=== PATIENT | male | born 1960 | race African-American/Black ===

== ENCOUNTER 2016-02-13 11:09 | Inpatient (IN) | payer OTHER ==
[2016-02-13 11:26] VITALS: BMI 25.0
--- NOTE | 2016-02-13 12:24 | HP ---
COWS - Scale Resting Pulse: 0= [place] 80 or Below Sweatin=Flushed/Facial Moisture Restless Observation: 1= Difficult to Sit Still Pupil Size: 2= Moderately Dilated Bone or Joint Aches: 2= Severe Diffuse Aches Runny Nose/ Eye Tearin= Runny Nose/Eyes GI Upset > 30mins: 2= Nausea/Diarrhea Tremor Observation: 2= Slight Tremor Visible Yawning Observation: 1= 1-2x During Session Anxiety or Irritability: 2=Irritable/Anxious Goose Flesh Skin: 0=Smooth Skin COWS Score: 16 CIWA Score - CIWA Score Nausea/Vomitin (AND DIARRHEA) Muscle Tremors: 4-Moderate,w/Arms Extend Anxiety: 4-Mod. Anxious/Guarded Agitation: 4-Moderately Restless Paroxysmal Sweats: 3 Orientation: 0-Oriented Tacttile Disturbances: 0-None Auditory Disturbances: 0-None Visual Disturbances: 0-None Headache: 0-None Present CIWA-Ar Total Score: 18 Admission ROS BHS - HPI Chief Complaint: WITHDRAWAL SX. Allergies/Adverse Reactions: Allergies Allergy/AdvReac Type Severity Reaction Status Date / Time No Known Allergies Allergy Verified 02/13/16 11:30 History of Present Illness: 55 Y/O MAN WITH A LONG HX. OF HEROIN & ALCOHOL DEPENDENCE IS ADMITTED FOR DETOX. PT. HAS BEEN IN PREVIOUS DETOX, REPORTS ALMOST 2 YRS DRUG FREE & SOBER. Exam Limitations: No Limitations - Ebola screening Have you traveled outside of the country in the last 21 days: No Have you had contact with anyone from an Ebola affected area: No Have you been sick,other than usual withdrawal symptoms: No Do you have a fever: No - Review of Systems Constitutional: Diaphoresis EENT: reports: Nose Congestion Respiratory: reports: No Symptoms reported Cardiac: reports: No Symptoms Reported GI: reports: Diarrhea, Nausea, Abdominal cramping : reports: No Symptoms Reported Musculoskeletal: reports: No Symptoms Reported Integumentary: reports: Sweating Neuro: reports: Tremors Endocrine: reports: No Symptoms Reported Hematology: reports: No Symptoms Reported Psychiatric: reports: No Sypmtoms Reported Other Systems: Reviewed and Negative Patient History - Patient Medical History Hx Anemia: No Hx Asthma: No Hx Chronic Obstructive Pulmonary Disease (COPD): No Hx Cancer: No Hx Cardiac Disorders: No Hx Congestive Heart Failure: No Hx Hypertension: No Hx Hypercholesterolemia: No Hx Pacemaker: No HX Cerebrovascular Accident: No Hx Seizures: No Hx Dementia: No Hx Diabetes: No Hx Gastrointestinal Disorders: No Hx Liver Disease: Yes Hx Genitourinary Disorders: No Hx Sexually Transmitted Disorders: No Hx Renal Disease (ESRD): No Hx Thyroid Disease: No Hx Human Immunodeficiency Virus (HIV): No Hx Hepatitis C: Yes (NEEDS TREATMENT ) Hx Depression: No Hx Suicide Attempt: No Hx Bipolar Disorder: No Hx Schizophrenia: No - Patient Surgical History Past Surgical History: Yes Hx Neurologic Surgery: No Hx Cataract Extraction: No Hx Cardiac Surgery: No Hx Lung Surgery: No Hx Breast Surgery: No Hx Breast Biopsy: No Hx Abdominal Surgery: No Hx Appendectomy: No Hx Cholecystectomy: No Hx Genitourinary Surgery: Yes (s/p cystoscopy and placement of stents for kidney stones ) Hx Section: No Hx Orthopedic Surgery: No Anesthesia Reaction: No - PPD History Previous Implant?: Yes Documented Results: Negative w/proof Implanted On Prior [facility] Admission?: Yes Date: 02/12/15 Results: 0 MM PPD to be Administered?: Yes - Smoking Cessation Smoking history: Current every day smoker Have you smoked in the past 12 months: Yes Aproximately how many cigarettes per day: 10 Cigars Per Day: 0 Hx Chewing Tobacco Use: No Initiated information on smoking cessation: Yes 'Breaking Loose' booklet given: 02/13/16 - Substance & Tx. History Hx Alcohol Use: Yes Hx Substance Use: Yes Substance Use Type: Alcohol, Heroin Hx Substance Use Treatment: Yes (DETOX) - Substances Abused Heroin Route: Injection Frequency: Daily Amount used: 10 bags Age of first use: 21 Date of Last Use: 02/13/16 Alcohol Route: Oral Frequency: Daily Amount used: beer(40 oz -4-5 bottles)/vodka 1 LITER Age of first use: 20 Date of Last Use: 02/12/16 Family Disease History - Family Disease History Family Disease History: Diabetes: Mother, Heart Disease: Father (alcoholic, [place]), [place]: Father, Other: Father Admission Physical Exam BHS - Vital Signs Vital Signs: Vital Signs - 24 hr 02/13/16 11:23 Temperature 97.9 F Pulse Rate 66 Respiratory 20 Rate Blood Pressure 133/94 - Physical General Appearance: Yes: Tremorous, Sweating, Anxious HEENTM: Yes: Nasal Congestion, Rhinorrhea Respiratory: Yes: Chest Non-Tender, Lungs Clear, Normal Breath Sounds Neck: Yes: Supple Breast: Yes: Breast Exam Deferred Cardiology: Yes: Regular Rhythm, Regular Rate, S1, S2 Abdominal: Yes: Normal Bowel Sounds, Non Tender, Flat, Soft Genitourinary: Yes: Within Normal Limits Back: Yes: Within Normal Limits Musculoskeletal: Yes: Within Normal Limits Extremities: Yes: Tremors Neurological: Yes: Fully Oriented, Alert Integumentary: Yes: Diaphoresis Lymphatic: Yes: Within Normal Limits - Diagnostic (1) Alcohol dependence with uncomplicated withdrawal Current Visit: Yes Status: Acute (2) Opioid dependence with withdrawal Current Visit: Yes Status: Acute (3) Hepatitis C Current Visit: Yes Status: Chronic Qualifiers: Viral hepatitis chronicity: chronic Hepatic coma status: without hepatic coma Qualified Code(s): B18.2 - Chronic viral hepatitis C (4) Nicotine dependence Current Visit: Yes Status: Chronic Qualifiers: Nicotine product type: cigarettes Substance use status: uncomplicated Qualified Code(s): F17.210 - Nicotine dependence, cigarettes, uncomplicated Cleared for Admission S - Detox or Rehab [facility] Level of Care: Medically Managed Detox Regimen/Protocol: Methadone/Librium [facility] Breath Alcohol Content Breath Alcohol Content: 0 Urine Drug Screen - Results Drug Screen Negative: No Urine Drug Screen Results: OPI-Opiates, MTD-Methadone
[2016-02-13] MEDS ORDERED: LOPERAMIDE HCL 2 MG CAPSULE PO PRN (12:32)
[2016-02-13] MEDS ORDERED: MENTHOL/PHENOL 1 EACH UD MM PRN (12:32)
[2016-02-13] MEDS ORDERED: MAGNESIUM HYDROX 2400MG/30ML ORAL SUSPENSION 30 ML CUP PO PRN (12:32)
[2016-02-13] MEDS ORDERED: chlordiazePOXIDE HCL 25 MG CAPSULE PO PRN (12:32)
[2016-02-13] MEDS ORDERED: MAGNESIUM CITRATE 300 ML BOTTLE PO PRN (12:32)
[2016-02-13] MEDS ORDERED: P-EPHED 60MG/TRIPROLIDI 2.5MG TABLET PO PRN (12:32)
[2016-02-13] MEDS ORDERED: NICOTINE POLACRILEX 2 MG GUM BC PRN (12:32)
[2016-02-13] MEDS ORDERED: guaiFENesin/D-METHORPHAN HB 10 ML UNIT-DOSE CUPS PO PRN (12:32)
[2016-02-13] MEDS ORDERED: IBUPROFEN 400 MG TABLET (FP) PO PRN (12:32)
[2016-02-13] MEDS ORDERED: MAG HYDROX/AL HYDROX/SIMETH 30 ML UNIT-DOSE CUP PO PRN (12:32)
[2016-02-13] MEDS ORDERED: ACETAMINOPHEN 325 MG TABLET (FP) PO PRN (12:32)
[2016-02-13] MEDS ORDERED: diphenhydrAMINE HCL 50 MG CAPSULE PO PRN (12:32)
[2016-02-13] MEDS ORDERED: chlordiazePOXIDE HCL 25 MG CAPSULE PO ONE (12:32)
[2016-02-13] MEDS ORDERED: METHADONE HCL 10 MG TABLET (FOR DETOX USE ONLY) PO ONE ×2 (12:32→23:00)
[2016-02-13] MEDS ORDERED: diphenhydrAMINE HCL 25 MG CAPSULE (FP) PO PRN (13:34)
[2016-02-13] MEDS: NICOTINE 21 MG/24 HOURS TOPICAL PATCH TD SCH (14:29)
[2016-02-13] MEDS: chlordiazePOXIDE HCL 25 MG CAPSULE PO SCH ×2 (17:30→22:11)
[2016-02-13] MEDS: THIAMINE HCL 100 MG TABLET (FP) PO SCH (22:11)
[2016-02-13 23:01] LABS: URINE APPEARANCE SLCLOUDY; URINE BILIRUBIN NEGATIVE (NEGATIVE); URINE BLOOD NEGATIVE (NEGATIVE); URINE COLOR YELLOW; URINE GLUCOSE (UA) NEGATIVE (NEGATIVE); URINE KETONE NEGATIVE (NEGATIVE); URINE LEUK ESTERASE NEGATIVE (NEGATIVE); URINE NITRITE NEGATIVE (NEGATIVE); URINE PROTEIN NEGATIVE (NEGATIVE); URINE UROBILINOGEN NEGATIVE E.U./dl (0.2-1.0)
[2016-02-14] MEDS: chlordiazePOXIDE HCL 25 MG CAPSULE PO SCH ×4 (05:50→22:02)
[2016-02-14] MEDS ORDERED: METHADONE HCL 10 MG TABLET (FOR DETOX USE ONLY) PO SCH (10:00)
--- NOTE | 2016-02-14 10:18 | PN ---
[facility] CIWA - CIWA Score Nausea/Vomitin-No Nausea/No Vomiting Muscle Tremors: 4-Moderate,w/Arms Extend Anxiety: 4-Mod. Anxious/Guarded Agitation: 3 Paroxysmal Sweats: 3 Orientation: 0-Oriented Tacttile Disturbances: 0-None Auditory Disturbances: 0-None Visual Disturbances: 0-None Headache: 0-None Present CIWA-Ar Total Score: 14 BHS COWS - Scale Resting Pulse: 0= [place] 80 or Below Sweatin=Flushed/Facial Moisture Restless Observation: 1= Difficult to Sit Still Pupil Size: 0= Normal to Room Light Bone or Joint Aches: 1= Mild Discomfort Runny Nose/ Eye Tearin= Runny Nose/Eyes GI Upset > 30mins: 2= Nausea/Diarrhea Tremor Observation of Outstretched Hands: 2= Slight Tremor Visible Yawning Observation: 1= 1-2x During Session Anxiety or Irritability: 2=Irritable/Anxious Goose Flesh Skin: 0=Smooth Skin COWS Score: 13 [facility] Progress Note (SOAP) Subjective: ANXIETY,TREMORS,SWEATING,INTERRUPTED,RESTLESS,BODY ACHES Objective: 02/14/16 10:18 Vital Signs - 8 hr 02/14/16 02/14/16 02/14/16 03:30 06:07 10:11 Temperature 98.3 F 97.5 F L Pulse Rate 61 71 Respiratory 18 18 18 Rate Blood Pressure 115/80 122/83 Laboratory Last Values Urine Color Yellow 02/13/16 22:45 Urine Appearance Slcloudy 02/13/16 22:45 Urine pH 6.0 (5.0-8.0) 02/13/16 22:45 Ur Specific [place] 1.024 (1.001-1.035) 02/13/16 22:45 Urine Protein Negative (NEGATIVE) 02/13/16 22:45 Urine Glucose (UA) Negative (NEGATIVE) 02/13/16 22:45 Urine Ketones Negative (NEGATIVE) 02/13/16 22:45 Urine Blood Negative (NEGATIVE) 02/13/16 22:45 Urine Nitrite Negative (NEGATIVE) 02/13/16 22:45 Urine Bilirubin Negative (NEGATIVE) 02/13/16 22:45 Urine Urobilinogen Negative E.U./dl (0.2-1.0) 02/13/16 22:45 Ur Leukocyte Esterase Negative (NEGATIVE) 02/13/16 22:45 Assessment: 02/14/16 10:18 WITHDRAWAL SX. Plan: CONTINUE DETOX
[2016-02-14] MEDS: PRENATAL VITAMINS W/ FOLIC ACID TABLET (FP) PO SCH (10:19)
[2016-02-14] MEDS: NICOTINE 21 MG/24 HOURS TOPICAL PATCH TD SCH (10:20)
[2016-02-14 10:37] LABS: MCH 31.3 pg (25.7-33.7); MCHC 33.4 g/dl (32.0-35.9); MEAN CELL VOLUME 93.7 fl (80-96); MEAN PLT VOLUME 8.8 fl (7.5-11.1); PLATELET COUNT 171 K/MM3 (134-434); RDW 13.2 % (11.9-15.9); WHITE BLOOD COUNT 4.9 K/mm3 (4.0-10.0)
[2016-02-14 11:06] LABS: ALBUMIN 3.3 g/dl (3.4-5.0); ALK PHOS 94 U/L (45-117); ANION GAP 5 (8-16); BILIRUBIN,TOTAL 0.5 mg/dL (0.2-1.0); CALCIUM 8.9 mg/dL (8.5-10.1); CO2 33 mmol/L (21-32); CREATININE 0.9 mg/dL (0.7-1.3); GLUCOSE,RANDOM 95 mg/dL (74-106); SGOT/AST 25 U/L (15-37); SGPT/ALT 30 U/L (12-78); TOT PROT 6.8 g/dl (6.4-8.2)
[2016-02-14] MEDS ORDERED: INFLUENZA VACCINE 45 MCG/0.5 ML (MDV 16-17) IM ONE ×2 (12:33→15:45)
[2016-02-14 15:28] LABS: HIV 1 & 2 AB NEGATIVE; HIV 1 AGp24 NEGATIVE
[2016-02-14] MEDS: THIAMINE HCL 100 MG TABLET (FP) PO SCH (22:02)
[2016-02-14] MEDS: hydrOXYzine PAMOATE 50 MG CAPSULE (FP) PO PRN (22:03)
[2016-02-15] MEDS: chlordiazePOXIDE HCL 25 MG CAPSULE PO SCH ×3 (06:00→10:08)
--- NOTE | 2016-02-15 09:43 | PN ---
S CIWA - CIWA Score Nausea/Vomitin Muscle Tremors: 3 Anxiety: 3 Agitation: 3 Paroxysmal Sweats: 1-Minimal Palms Moist Orientation: 0-Oriented Tacttile Disturbances: 1-Very Mild Itch/Numbness Auditory Disturbances: 1-Very Mild Visual Disturbances: 1-Very Mild Sensitivity Headache: 2-Mild CIWA-Ar Total Score: 18 BHS COWS - Scale Resting Pulse: 0= [place] 80 or Below Sweatin= Chills/Flushing Restless Observation: 3= Extraneous Movement Pupil Size: 2= Moderately Dilated Bone or Joint Aches: 2= Severe Diffuse Aches Runny Nose/ Eye Tearin= Runny Nose/Eyes GI Upset > 30mins: 3= Vomiting/Diarrhea Tremor Observation of Outstretched Hands: 2= Slight Tremor Visible Yawning Observation: 1= 1-2x During Session Anxiety or Irritability: 2=Irritable/Anxious Goose Flesh Skin: 0=Smooth Skin COWS Score: 18 S Progress Note (SOAP) Subjective: ALERT,IRRITABLE,ANXIOUS,INTERRUPTED SLEEP,TREMOR,PAIN IN THE BODY AND BACK Objective: 02/15/16 09:42 Vital Signs Temperature 96.6 F L 02/15/16 07:42 Pulse Rate 64 02/15/16 07:42 Respiratory Rate 18 02/15/16 07:42 Blood Pressure 126/82 02/15/16 07:42 O2 Sat by Pulse Oximetry (%) Laboratory Last Values WBC 4.9 K/mm3 (4.0-10.0) 02/14/16 07:15 RBC 4.48 M/mm3 (4.00-5.60) 02/14/16 07:15 Hgb 14.0 GM/dL (11.7-16.9) 02/14/16 07:15 Hct 42.0 % (35.4-49) 02/14/16 07:15 MCV 93.7 fl (80-96) 02/14/16 07:15 MCHC 33.4 g/dl (32.0-35.9) 02/14/16 07:15 RDW 13.2 % (11.9-15.9) 02/14/16 07:15 Plt Count 171 K/MM3 (134-434) 02/14/16 07:15 MPV 8.8 fl (7.5-11.1) 02/14/16 07:15 Sodium 141 mmol/L (136-145) 02/14/16 07:15 Potassium 4.0 mmol/L (3.5-5.1) 02/14/16 07:15 Chloride 103 mmol/L (98-107) 02/14/16 07:15 Carbon Dioxide 33 mmol/L (21-32) H 02/14/16 07:15 Anion Gap 5 (8-16) L 02/14/16 07:15 BUN 15 mg/dL (7-18) D 02/14/16 07:15 Creatinine 0.9 mg/dL (0.7-1.3) 02/14/16 07:15 Creat Clearance w eGFR > 60 (>60) 02/14/16 07:15 Random Glucose 95 mg/dL (74-106) 02/14/16 07:15 Calcium 8.9 mg/dL (8.5-10.1) 02/14/16 07:15 Total Bilirubin 0.5 mg/dL (0.2-1.0) 02/14/16 07:15 AST 25 U/L (15-37) 02/14/16 07:15 ALT 30 U/L (12-78) 02/14/16 07:15 Alkaline Phosphatase 94 U/L (45-117) 02/14/16 07:15 Total Protein 6.8 g/dl (6.4-8.2) 02/14/16 07:15 Albumin 3.3 g/dl (3.4-5.0) L 02/14/16 07:15 Urine Color Yellow 02/13/16 22:45 Urine Appearance Slcloudy 02/13/16 22:45 Urine pH 6.0 (5.0-8.0) 02/13/16 22:45 Ur Specific [place] 1.024 (1.001-1.035) 02/13/16 22:45 Urine Protein Negative (NEGATIVE) 02/13/16 22:45 Urine Glucose (UA) Negative (NEGATIVE) 02/13/16 22:45 Urine Ketones Negative (NEGATIVE) 02/13/16 22:45 Urine Blood Negative (NEGATIVE) 02/13/16 22:45 Urine Nitrite Negative (NEGATIVE) 02/13/16 22:45 Urine Bilirubin Negative (NEGATIVE) 02/13/16 22:45 Urine Urobilinogen Negative E.U./dl (0.2-1.0) 02/13/16 22:45 Ur Leukocyte Esterase Negative (NEGATIVE) 02/13/16 22:45 RPR Titer Nonreactive (NONREACTIVE) 02/14/16 07:15 HIV 1&2 Antibody Screen Negative 02/14/16 07:15 HIV P24 Antigen Negative 02/14/16 07:15 Assessment: 02/15/16 09:43 WITHDRAWAL SYMPTOM Plan: CONTINUE DETOX
[2016-02-15] MEDS: PRENATAL VITAMINS W/ FOLIC ACID TABLET (FP) PO SCH (10:07)
[2016-02-15] MEDS: CYCLOBENZAPRINE HCL 10 MG TABLET (FP) PO PRN (10:07)
[2016-02-15] MEDS: cloNIDine HCL 0.1 MG TABLET PO SCH ×2 (10:07→22:06)
[2016-02-15] MEDS: METHADONE HCL 5 MG TABLET (FOR DETOX USE ONLY) PO SCH (10:07)
[2016-02-15] MEDS: NICOTINE 21 MG/24 HOURS TOPICAL PATCH TD SCH (10:08)
[2016-02-15] MEDS: chlordiazePOXIDE 5 MG CAPSULE PO SCH ×2 (17:16→22:05)
[2016-02-15] MEDS: hydrOXYzine PAMOATE 50 MG CAPSULE (FP) PO SCH (22:06)
[2016-02-15] MEDS: THIAMINE HCL 100 MG TABLET (FP) PO SCH (22:06)
[2016-02-16] MEDS: chlordiazePOXIDE 5 MG CAPSULE PO SCH ×2 (06:28→10:05)
--- NOTE | 2016-02-16 09:26 | PN ---
S Progress Note (SOAP) Subjective: ALERT,IRRITABLE,ANXIOUS,INTERRUPTED SLEEP Objective: 02/16/16 09:25 Vital Signs Temperature 98.3 F 02/16/16 06:33 Pulse Rate 75 02/16/16 06:33 Respiratory Rate 18 02/16/16 06:41 Blood Pressure 118/78 02/16/16 06:33 O2 Sat by Pulse Oximetry (%) Assessment: 02/16/16 09:25 WITHDRAWAL SYMPTOM Plan: CONTINUE DETOX
[2016-02-16] MEDS: METHADONE HCL 5 MG TABLET (FOR DETOX USE ONLY) PO SCH (10:05)
[2016-02-16] MEDS: CYCLOBENZAPRINE HCL 10 MG TABLET (FP) PO PRN (10:05)
[2016-02-16] MEDS: PRENATAL VITAMINS W/ FOLIC ACID TABLET (FP) PO SCH (10:05)
[2016-02-16] MEDS: cloNIDine HCL 0.1 MG TABLET PO SCH ×2 (10:06→22:01)
[2016-02-16] MEDS: NICOTINE 21 MG/24 HOURS TOPICAL PATCH TD SCH (10:06)
[2016-02-16] MEDS: chlordiazePOXIDE HCL 10 MG CAPSULE PO SCH ×2 (17:21→22:02)
[2016-02-16] MEDS: THIAMINE HCL 100 MG TABLET (FP) PO SCH (22:01)
[2016-02-16] MEDS: hydrOXYzine PAMOATE 50 MG CAPSULE (FP) PO SCH (22:02)
[2016-02-17] MEDS: chlordiazePOXIDE HCL 10 MG CAPSULE PO SCH ×2 (06:00→10:12)
--- NOTE | 2016-02-17 09:10 | PN ---
S Progress Note (SOAP) Subjective: ALERT,INTERRUPTED SLEEP,ANXIOUS Objective: 02/17/16 09:08 Vital Signs Temperature 97.7 F 02/17/16 06:21 Pulse Rate 78 02/17/16 06:21 Respiratory Rate 18 02/17/16 06:21 Blood Pressure 112/73 02/17/16 06:21 O2 Sat by Pulse Oximetry (%) Assessment: 02/17/16 09:09 WITHDRAWAL SYMPTOM Plan: CONTINUE DETOX,DISCHARGE IN AM
[2016-02-17] MEDS ORDERED: METHADONE HCL 10 MG TABLET (FOR DETOX USE ONLY) PO SCH (10:00)
[2016-02-17] MEDS: cloNIDine HCL 0.1 MG TABLET PO SCH ×2 (10:12→22:02)
[2016-02-17] MEDS: CYCLOBENZAPRINE HCL 10 MG TABLET (FP) PO PRN (10:12)
[2016-02-17] MEDS: NICOTINE 21 MG/24 HOURS TOPICAL PATCH TD SCH (10:12)
[2016-02-17] MEDS: PRENATAL VITAMINS W/ FOLIC ACID TABLET (FP) PO SCH (10:12)
[2016-02-17] MEDS: hydrOXYzine PAMOATE 50 MG CAPSULE (FP) PO PRN (17:14)
[2016-02-17] MEDS: hydrOXYzine PAMOATE 50 MG CAPSULE (FP) PO SCH (22:02)
[2016-02-17] MEDS: THIAMINE HCL 100 MG TABLET (FP) PO SCH (22:02)
[2016-02-18] MEDS ORDERED: METHADONE HCL 5 MG TABLET (FOR DETOX USE ONLY) PO SCH (06:00)
[2016-02-18 06:12] VITALS: BP 112/78; PULSE 78; TEMP 98.5
--- NOTE | 2016-02-18 08:31 | PN ---
S Progress Note (SOAP) Subjective: alert,no complaint Objective: 02/18/16 08:29 Vital Signs Temperature 98.5 F 02/18/16 06:11 Pulse Rate 78 02/18/16 06:11 Respiratory Rate 18 02/18/16 06:11 Blood Pressure 112/78 02/18/16 06:11 O2 Sat by Pulse Oximetry (%) Assessment: 02/18/16 08:30 detox completed,no withdrawal symptom Plan: discharge today,follow up with after care program as arrangement
--- NOTE | 2016-02-18 08:33 | DS ---
[facility] Detox Discharge Summary Admission Date: 02/13/16 Discharge Date: 02/18/16 - History Present History: Alcohol Dependence, Opioid Dependence Additional Comments: follow up with after care program as arrangement Pertinent Past History: nicotine dependence - Physical Exam Results Vital Signs: Vital Signs Temperature 98.5 F 02/18/16 06:11 Pulse Rate 78 02/18/16 06:11 Respiratory Rate 18 02/18/16 06:11 Blood Pressure 112/78 02/18/16 06:11 O2 Sat by Pulse Oximetry (%) Pertinent Admission Physical Exam Findings: withdrawal symptom - Treatment Hospital Course: Detox Protocol Followed, Detoxed Safely, Responded well, Discharged Condition Good Patient has Accepted a Re[facility] - Medication Discharge Medications: Ambulatory Orders NK [No Known Home Medication] 10/17/15 - AMA Did Patient Leave Against Medical Advice: No
== END 2016-02-18 09:35 | disposition home or self-care (01) | DRG 773 ==
LOC: YASAS 11:09 → Y3N 12:24
PROVIDERS: ADMIT Internal Medicine; ATTEND Internal Medicine
PROC: HZ2ZZZZ Detoxification Services for Substance Abuse Treatment (ICD-10-PCS; principal; 2016-02-13)
DX: F11.23 Opioid dependence with withdrawal (principal); F10.20 Alcohol dependence, uncomplicated; B18.2 Chronic viral hepatitis C; Z96.0 Presence of urogenital implants
CPT/HCPCS: 36415; 80053; 81003; 85027; 86593; 87389; 93005; 93010

== ENCOUNTER 2016-06-27 11:04 | Inpatient (IN) | payer OTHER ==
[2016-06-27 12:19] VITALS: BMI 24.2
--- NOTE | 2016-06-27 13:34 | HP ---
COWS - Scale Resting Pulse: 0= [place] 80 or Below Sweatin= Chills/Flushing Restless Observation: 3= Extraneous Movement Pupil Size: 2= Moderately Dilated Bone or Joint Aches: 4=Acute Joint/Muscle Pain Runny Nose/ Eye Tearin= Runny Nose/Eyes GI Upset > 30mins: 1= Stomach Cramp Tremor Observation: 2= Slight Tremor Visible Yawning Observation: 2= >3x During Session Anxiety or Irritability: 2=Irritable/Anxious Goose Flesh Skin: 0=Smooth Skin COWS Score: 19 CIWA Score - CIWA Score Nausea/Vomitin Muscle Tremors: 4-Moderate,w/Arms Extend Anxiety: 4-Mod. Anxious/Guarded Agitation: 4-Moderately Restless Paroxysmal Sweats: 1-Minimal Palms Moist Orientation: 0-Oriented Tacttile Disturbances: 3-Moderate Itch/Numb/Burn Auditory Disturbances: 0-None Visual Disturbances: 0-None Headache: 0-None Present CIWA-Ar Total Score: 18 Admission ROS BHS - HPI Chief Complaint: DETOX TX FOR HEROIN AND ALCOHOL DEPENDENCE Allergies/Adverse Reactions: Allergies Allergy/AdvReac Type Severity Reaction Status Date / Time No Known Allergies Allergy Verified 06/27/16 12:37 History of Present Illness: 55 Y/O AA/MALE WITH A HX ALCOHOL,HEROIN AND COCAINE DEPENDENCE SEEKING DETOX [place] Exam Limitations: No Limitations - Ebola screening Have you traveled outside of the country in the last 21 days: No Have you had contact with anyone from an Ebola affected area: No Have you been sick,other than usual withdrawal symptoms: No - Review of Systems Constitutional: Chills, Loss of Appetite, Night Sweats, Changes in sleep, Unintentional Wgt. Loss EENT: reports: Tearing, Nose Congestion, Dental Problems (MISSING TEETH/UPPER FRONT BRIDGE) Respiratory: reports: No Symptoms reported Cardiac: reports: Lightheadedness GI: reports: Constipated, Diarrhea, Nausea, Poor Appetite, Vomiting : reports: Frequency Musculoskeletal: reports: Back Pain, Joint Pain, Muscle Pain Integumentary: reports: Bruising Neuro: reports: Headache, Tremors, Unsteady Gait Endocrine: reports: No Symptoms Reported Hematology: reports: No Symptoms Reported Psychiatric: reports: Orientated x3, Anxious Other Systems: Reviewed and Negative Patient History - Patient Medical History Hx Anemia: No Hx Asthma: No Hx Chronic Obstructive Pulmonary Disease (COPD): No Hx Cancer: No Hx Cardiac Disorders: No Hx Congestive Heart Failure: No Hx Hypertension: No Hx Hypercholesterolemia: No Hx Pacemaker: No HX Cerebrovascular Accident: No Hx Seizures: No Hx Dementia: No Hx Diabetes: No Hx Gastrointestinal Disorders: No Hx Liver Disease: Yes Hx Genitourinary Disorders: No Hx Sexually Transmitted Disorders: No Hx Renal Disease (ESRD): Yes (HX KIDNEY STONES ) Hx Thyroid Disease: No Hx Human Immunodeficiency Virus (HIV): No Hx Hepatitis C: Yes (NEEDS TREATMENT ) Hx Depression: No Hx Suicide Attempt: No (DENIES) Hx Bipolar Disorder: No Hx Schizophrenia: No - Patient Surgical History Past Surgical History: Yes Hx Neurologic Surgery: No Hx Cataract Extraction: No Hx Cardiac Surgery: No Hx Lung Surgery: No Hx Breast Surgery: No Hx Breast Biopsy: No Hx Abdominal Surgery: No Hx Appendectomy: No Hx Cholecystectomy: No Hx Genitourinary Surgery: Yes (s/p cystoscopy and placement of stents for kidney stones ) Hx Orthopedic Surgery: No Anesthesia Reaction: No - PPD History Previous Implant?: Yes Documented Results: Negative w/proof Implanted On Prior [facility] Admission?: Yes Date: 02/15/16 Results: 0 MM PPD to be Administered?: No - Reproductive History Patient is a Female of Child Bearing Age (11 -55 yrs old): No (MALE) - Smoking Cessation Smoking history: Current every day smoker Have you smoked in the past 12 months: Yes Aproximately how many cigarettes per day: 10 Cigars Per Day: 0 Hx Chewing Tobacco Use: No Initiated information on smoking cessation: Yes 'Breaking Loose' booklet given: 06/27/16 - Substance & Tx. History Hx Alcohol Use: Yes (RUM/VODKA) Hx Substance Use: Yes (HEROIN/COCAINE) Substance Use Type: Alcohol, Cocaine (RECENT USE.), Heroin Hx Substance Use Treatment: Yes ([facility]-DETOX) - Substances Abused Alcohol Route: Oral Frequency: Daily Amount used: vodka(1liter)/rum (1 liter)/beer (4-40 oz) Age of first use: 17 Date of Last Use: 06/27/16 Heroin Route: Injection Frequency: Daily Amount used: 10 bags Age of first use: 26 Date of Last Use: 06/27/16 Cocaine Route: Injection Frequency: Daily Amount used: $50 Age of first use: 26 Date of Last Use: 06/27/16 Family Disease History - Family Disease History Family Disease History: Diabetes: Mother, Heart Disease: Father (alcoholic, [place]), [place]: Father, Other: Father Admission Physical Exam [facility] - Vital Signs Vital Signs: Vital Signs - 24 hr 06/27/16 12:17 Temperature 97.5 F L Pulse Rate 75 Respiratory 20 Rate Blood Pressure 124/84 - Physical General Appearance: Yes: Moderate Distress, Irritable, Anxious HEENTM: Yes: EOMI, Normocephalic, AISLINN, Pharynx Normal Respiratory: Yes: Chest Non-Tender, Lungs Clear, Normal Breath Sounds, No Respiratory Distress Neck: Yes: Supple, Trachea in good position Breast: Yes: Breast Exam Deferred Cardiology: Yes: Regular Rhythm, Regular Rate, S1, S2 Abdominal: Yes: Normal Bowel Sounds, Non Tender, Soft Genitourinary: Yes: Other (N/C) Back: Yes: Within Normal Limits Musculoskeletal: Yes: full range of Motion, Gait Steady Extremities: Yes: Normal Range of Motion, Non-Tender Neurological: Yes: city dispatcher II-XII NML intact, Fully Oriented, Alert Integumentary: Yes: Dry, Warm, Track [place] (BOTH UPPER EXTREMITIES) Lymphatic: Yes: Within Normal Limits - Diagnostic (1) Alcohol dependence with uncomplicated withdrawal Current Visit: No Status: Acute (2) Opioid dependence with withdrawal Current Visit: Yes Status: Acute (3) kidney stones Current Visit: No Status: Resolved (4) Hepatitis C Current Visit: Yes Status: Chronic Qualifiers: Viral hepatitis chronicity: chronic Hepatic coma status: without hepatic coma Qualified Code(s): B18.2 - Chronic viral hepatitis C (5) Nicotine dependence Current Visit: Yes Status: Chronic Qualifiers: Nicotine product type: cigarettes Substance use status: uncomplicated Qualified Code(s): F17.210 - Nicotine dependence, cigarettes, uncomplicated (6) Cocaine abuse Current Visit: Yes Status: Acute Cleared for Admission [facility] - Detox or Rehab [facility] Level of Care: Medically Managed Detox Regimen/Protocol: Methadone/Librium [facility] Breath Alcohol Content Breath Alcohol Content: 0 Urine Drug Screen - Results Drug Screen Negative: No Urine Drug Screen Results: FELICITAS-Cocaine, OPI-Opiates
[2016-06-27] MEDS ORDERED: MAG HYDROX/AL HYDROX/SIMETH 30 ML UNIT-DOSE CUP PO PRN (13:43)
[2016-06-27] MEDS ORDERED: LOPERAMIDE HCL 2 MG CAPSULE PO PRN (13:43)
[2016-06-27] MEDS ORDERED: MAGNESIUM HYDROX 2400MG/30ML ORAL SUSPENSION 30 ML CUP PO PRN (13:43)
[2016-06-27] MEDS ORDERED: P-EPHED 60MG/TRIPROLIDI 2.5MG TABLET PO PRN (13:43)
[2016-06-27] MEDS ORDERED: diphenhydrAMINE HCL 50 MG CAPSULE PO PRN (13:43)
[2016-06-27] MEDS ORDERED: guaiFENesin/D-METHORPHAN HB 10 ML UNIT-DOSE CUPS PO PRN (13:43)
[2016-06-27] MEDS ORDERED: NICOTINE POLACRILEX 2 MG GUM BUC PRN (13:43)
[2016-06-27] MEDS ORDERED: MAGNESIUM CITRATE 300 ML BOTTLE PO PRN (13:43)
[2016-06-27] MEDS ORDERED: MENTHOL/PHENOL 1 EACH UD MM PRN (13:43)
[2016-06-27] MEDS ORDERED: ACETAMINOPHEN 325 MG TABLET (FP) PO PRN (13:43)
[2016-06-27] MEDS ORDERED: METHADONE HCL 10 MG TABLET (FOR DETOX USE ONLY) PO ONE ×2 (14:24→23:00)
[2016-06-27] MEDS: chlordiazePOXIDE HCL 25 MG CAPSULE PO PRN (15:06)
[2016-06-27] MEDS: NICOTINE 14 MG/24 HOURS TOPICAL PATCH TD SCH (15:07)
[2016-06-27] MEDS: chlordiazePOXIDE HCL 25 MG CAPSULE PO SCH ×2 (17:37→22:51)
[2016-06-27 19:20] LABS: URINE APPEARANCE CLEAR; URINE BILIRUBIN NEGATIVE (NEGATIVE); URINE BLOOD NEGATIVE (NEGATIVE); URINE COLOR YELLOW; URINE GLUCOSE (UA) NEGATIVE (NEGATIVE); URINE KETONE NEGATIVE (NEGATIVE); URINE LEUK ESTERASE NEGATIVE (NEGATIVE); URINE NITRITE NEGATIVE (NEGATIVE); URINE PROTEIN NEGATIVE (NEGATIVE); URINE UROBILINOGEN NEGATIVE E.U./dl (0.2-1.0)
[2016-06-27] MEDS: THIAMINE HCL 100 MG TABLET (FP) PO SCH (22:51)
[2016-06-28] MEDS: chlordiazePOXIDE HCL 25 MG CAPSULE PO SCH ×4 (05:30→22:27)
[2016-06-28 09:44] LABS: HIV 1 & 2 AB NEGATIVE; HIV 1 AGp24 NEGATIVE
[2016-06-28] MEDS ORDERED: METHADONE HCL 10 MG TABLET (FOR DETOX USE ONLY) PO SCH (10:00)
--- NOTE | 2016-06-28 10:07 | EKG ---
Test Reason : Blood Pressure : / mmHG Vent. Rate : 056 BPM Atrial Rate : 056 BPM P-R Int : 176 ms QRS Dur : 090 ms QT Int : 394 ms P-R-T Axes : 055 -06 018 degrees QTc Int : 380 ms SINUS BRADYCARDIA POSSIBLE ANTEROSEPTAL INFARCT , AGE UNDETERMINED ABNORMAL ECG NO PREVIOUS ECGS AVAILABLE Confirmed by ZULEYKA WANG MD ([id number]) on 06/28/2016 10:07:04 AM Referred By: Confirmed By:ZULEYKA WANG MD
[2016-06-28 10:13] LABS: MCH 31.2 pg (25.7-33.7); MEAN CELL VOLUME 94.5 fl (80-96); MEAN PLT VOLUME 9.4 fl (7.5-11.1); PLATELET COUNT 163 K/MM3 (134-434); RDW 13.4 % (11.9-15.9); WHITE BLOOD COUNT 5.3 K/mm3 (4.0-10.0)
[2016-06-28] MEDS: PRENATAL VITAMINS W/ FOLIC ACID TABLET (FP) PO SCH (10:39)
[2016-06-28] MEDS: NICOTINE 14 MG/24 HOURS TOPICAL PATCH TD SCH (10:39)
[2016-06-28 10:44] LABS: ALBUMIN 3.9 g/dl (3.4-5.0)
[2016-06-28 10:59] LABS: ALK PHOS 97 U/L (45-117); ANION GAP 6 (8-16); BILIRUBIN,TOTAL 0.5 mg/dL (0.2-1.0); CALCIUM 9.6 mg/dL (8.5-10.1); CO2 34 mmol/L (21-32); COCKROFT - GAULT 111.06; CREATININE 0.8 mg/dL (0.7-1.3); GLUCOSE,RANDOM 88 mg/dL (74-106); SGOT/AST 44 U/L (15-37); SGPT/ALT 43 U/L (12-78); TOT PROT 7.8 g/dl (6.4-8.2)
--- NOTE | 2016-06-28 11:25 | PN ---
[facility] CIWA - CIWA Score Nausea/Vomitin-No Nausea/No Vomiting Muscle Tremors: 4-Moderate,w/Arms Extend Anxiety: 3 Agitation: 4-Moderately Restless Paroxysmal Sweats: 3 Orientation: 0-Oriented Tacttile Disturbances: 0-None Auditory Disturbances: 0-None Visual Disturbances: 0-None Headache: 1-Very Mild CIWA-Ar Total Score: 15 BHS COWS - Scale Resting Pulse: 0= [place] 80 or Below Sweatin=Flushed/Facial Moisture Restless Observation: 1= Difficult to Sit Still Pupil Size: 0= Normal to Room Light Bone or Joint Aches: 2= Severe Diffuse Aches Runny Nose/ Eye Tearin= Nasal Congestion GI Upset > 30mins: 1= Stomach Cramp Tremor Observation of Outstretched Hands: 2= Slight Tremor Visible Yawning Observation: 2= >3x During Session Anxiety or Irritability: 2=Irritable/Anxious Goose Flesh Skin: 3=[place]il[place] COWS Score: 16 S Progress Note (SOAP) Subjective: sweats shakes interrupted sleep agitation irritable Objective: 06/28/16 11:24 Vital Signs Temperature 97.9 F 06/28/16 09:43 Pulse Rate 70 06/28/16 09:43 Respiratory Rate 18 06/28/16 09:43 Blood Pressure 130/80 06/28/16 09:43 O2 Sat by Pulse Oximetry (%) Laboratory Tests 06/27/16 06/27/16 06/28/16 14:00 15:00 06:00 WBC 5.3 RBC 4.40 Hgb 13.7 Hct 41.6 MCV 94.5 MCHC 33.0 RDW 13.4 Plt Count 163 MPV 9.4 Sodium Potassium Chloride Carbon Dioxide Anion Gap BUN Creatinine Creat Clearance w eGFR Random Glucose Calcium Total Bilirubin AST ALT Alkaline Phosphatase Total Protein Albumin Urine Color Yellow Urine Appearance Clear Urine pH 7.0 Ur Specific [place] 1.015 Urine Protein Negative Urine Glucose (UA) Negative Urine Ketones Negative Urine Blood Negative Urine Nitrite Negative Urine Bilirubin Negative Urine Urobilinogen Negative Ur Leukocyte Esterase Negative HIV 1&2 Antibody Screen Negative HIV P24 Antigen Negative 06/28/16 06:00 WBC RBC Hgb Hct MCV MCHC RDW Plt Count MPV Sodium 142 Potassium 5.6 H D Chloride 102 Carbon Dioxide 34 H Anion Gap 6 L BUN 18 Creatinine 0.8 Creat Clearance w eGFR > 60 Random Glucose 88 Calcium 9.6 Total Bilirubin 0.5 AST 44 H D ALT 43 D Alkaline Phosphatase 97 Total Protein 7.8 Albumin 3.9 Urine Color Urine Appearance Urine pH Ur Specific [place] Urine Protein Urine Glucose (UA) Urine Ketones Urine Blood Urine Nitrite Urine Bilirubin Urine Urobilinogen Ur Leukocyte Esterase HIV 1&2 Antibody Screen HIV P24 Antigen awake/alert ambulating no acute distress Assessment: 06/28/16 11:25 withdrawal sx Plan: continue detox increase fluids
[2016-06-28] MEDS: IBUPROFEN 400 MG TABLET (FP) PO PRN (14:48)
[2016-06-28] MEDS: chlordiazePOXIDE HCL 25 MG CAPSULE PO PRN (14:50)
[2016-06-28] MEDS: THIAMINE HCL 100 MG TABLET (FP) PO SCH (22:27)
[2016-06-29] MEDS: chlordiazePOXIDE HCL 25 MG CAPSULE PO PRN (01:59)
[2016-06-29] MEDS: chlordiazePOXIDE HCL 25 MG CAPSULE PO SCH ×2 (05:32→10:51)
[2016-06-29] MEDS: PRENATAL VITAMINS W/ FOLIC ACID TABLET (FP) PO SCH (10:51)
[2016-06-29] MEDS: METHADONE HCL 5 MG TABLET (FOR DETOX USE ONLY) PO SCH (10:51)
[2016-06-29] MEDS: NICOTINE 14 MG/24 HOURS TOPICAL PATCH TD SCH (10:52)
--- NOTE | 2016-06-29 10:52 | PN ---
[facility] CIWA - CIWA Score Nausea/Vomitin Muscle Tremors: 3 Anxiety: 3 Agitation: 3 Paroxysmal Sweats: 1-Minimal Palms Moist Orientation: 0-Oriented Tacttile Disturbances: 1-Very Mild Itch/Numbness Auditory Disturbances: 1-Very Mild Visual Disturbances: 1-Very Mild Sensitivity Headache: 2-Mild CIWA-Ar Total Score: 18 [facility] COWS - Scale Resting Pulse: 0= ME 80 or Below Sweatin=Flushed/Facial Moisture Restless Observation: 3= Extraneous Movement Pupil Size: 1= Pupils >than Normal Bone or Joint Aches: 2= Severe Diffuse Aches Runny Nose/ Eye Tearin= Runny Nose/Eyes GI Upset > 30mins: 3= Vomiting/Diarrhea Tremor Observation of Outstretched Hands: 2= Slight Tremor Visible Yawning Observation: 1= 1-2x During Session Anxiety or Irritability: 2=Irritable/Anxious Goose Flesh Skin: 0=Smooth Skin COWS Score: 18 [facility] Progress Note (SOAP) Subjective: ALERT,IRRITABLE,ANXIOUS,INTERRUPTED SLEEP,TREMOR,PAIN IN THE BODY AND BACK Objective: 06/29/16 10:49 Vital Signs Temperature 98.2 F 06/29/16 09:25 Pulse Rate 74 06/29/16 09:25 Respiratory Rate 16 06/29/16 09:25 Blood Pressure 133/93 06/29/16 09:25 O2 Sat by Pulse Oximetry (%) EKG SINUS BRADYCARDIA 58/MIN NO CHEST PAIN,NO SOB,NO DIZZINESS Laboratory Last Values WBC 5.3 K/mm3 (4.0-10.0) 06/28/16 06:00 RBC 4.40 M/mm3 (4.00-5.60) 06/28/16 06:00 Hgb 13.7 GM/dL (11.7-16.9) 06/28/16 06:00 Hct 41.6 % (35.4-49) 06/28/16 06:00 MCV 94.5 fl (80-96) 06/28/16 06:00 MCHC 33.0 g/dl (32.0-35.9) 06/28/16 06:00 RDW 13.4 % (11.9-15.9) 06/28/16 06:00 Plt Count 163 K/MM3 (134-434) 06/28/16 06:00 MPV 9.4 fl (7.5-11.1) 06/28/16 06:00 Sodium 142 mmol/L (136-145) 06/28/16 06:00 Potassium 5.6 mmol/L (3.5-5.1) H D 06/28/16 06:00 Chloride 102 mmol/L (98-107) 06/28/16 06:00 Carbon Dioxide 34 mmol/L (21-32) H 06/28/16 06:00 Anion Gap 6 (8-16) L 06/28/16 06:00 BUN 18 mg/dL (7-18) 06/28/16 06:00 Creatinine 0.8 mg/dL (0.7-1.3) 06/28/16 06:00 Creat Clearance w eGFR > 60 (>60) 06/28/16 06:00 Random Glucose 88 mg/dL (74-106) 06/28/16 06:00 Calcium 9.6 mg/dL (8.5-10.1) 06/28/16 06:00 Total Bilirubin 0.5 mg/dL (0.2-1.0) 06/28/16 06:00 AST 44 U/L (15-37) H D 06/28/16 06:00 ALT 43 U/L (12-78) D 06/28/16 06:00 Alkaline Phosphatase 97 U/L (45-117) 06/28/16 06:00 Total Protein 7.8 g/dl (6.4-8.2) 06/28/16 06:00 Albumin 3.9 g/dl (3.4-5.0) 06/28/16 06:00 Urine Color Yellow 06/27/16 15:00 Urine Appearance Clear 06/27/16 15:00 Urine pH 7.0 (5.0-8.0) 06/27/16 15:00 Ur Specific [place] 1.015 (1.005-1.025) 06/27/16 15:00 Urine Protein Negative (NEGATIVE) 06/27/16 15:00 Urine Glucose (UA) Negative (NEGATIVE) 06/27/16 15:00 Urine Ketones Negative (NEGATIVE) 06/27/16 15:00 Urine Blood Negative (NEGATIVE) 06/27/16 15:00 Urine Nitrite Negative (NEGATIVE) 06/27/16 15:00 Urine Bilirubin Negative (NEGATIVE) 06/27/16 15:00 Urine Urobilinogen Negative E.U./dl (0.2-1.0) 06/27/16 15:00 Ur Leukocyte Esterase Negative (NEGATIVE) 06/27/16 15:00 RPR Titer Nonreactive (NONREACTIVE) 06/28/16 06:00 HIV 1&2 Antibody Screen Negative 06/27/16 14:00 HIV P24 Antigen Negative 06/27/16 14:00 Assessment: 06/29/16 10:51 WITHDRAWAL SYMPTOM Plan: CONTINUE DETOX,ENCOURAGE ORAL FLUID,REPEAT BMP TODAY,INITIAL K IS 5.6
[2016-06-29] MEDS: IBUPROFEN 400 MG TABLET (FP) PO PRN (10:54)
[2016-06-29] MEDS: CYCLOBENZAPRINE HCL 10 MG TABLET (FP) PO PRN ×2 (11:38→22:05)
[2016-06-29] MEDS: cloNIDine HCL 0.1 MG TABLET PO SCH ×2 (11:38→22:05)
[2016-06-29 14:29] LABS: CALCIUM 8.9 mg/dL (8.5-10.1)
[2016-06-29 14:30] LABS: COCKROFT - GAULT 111.06; CREATININE 0.8 mg/dL (0.7-1.3)
[2016-06-29] MEDS: chlordiazePOXIDE 5 MG CAPSULE PO SCH ×2 (17:26→22:05)
[2016-06-29] MEDS: THIAMINE HCL 100 MG TABLET (FP) PO SCH (22:05)
[2016-06-29 22:27] VITALS: TEMP 98.1
[2016-06-30] MEDS: chlordiazePOXIDE 5 MG CAPSULE PO SCH ×2 (06:06→10:47)
[2016-06-30 10:25] VITALS: BP 114/79; PULSE 80
--- NOTE | 2016-06-30 10:43 | PN ---
[facility] Progress Note (SOAP) Subjective: ALERT,PAIN IN THE BODY AND BACK,INSOMNIA,TREMOR,INTERRUPTED SLEEP Objective: 06/30/16 10:40 Vital Signs Temperature 98.1 F 06/30/16 10:24 Pulse Rate 80 06/30/16 10:24 Respiratory Rate 16 06/30/16 10:24 Blood Pressure 114/79 06/30/16 10:24 O2 Sat by Pulse Oximetry (%) Laboratory Results - last 24 hr 06/29/16 09:50 Sodium 144 Potassium 3.7 D Chloride 105 Carbon Dioxide 28 Anion Gap 11 BUN 12 D Creatinine 0.8 Random Glucose 119 H D Calcium 8.9 REPEAT K IS 3.7 06/30/16 10:41 GLUCOSE 119 NON FASTING Assessment: WITHDRAWAL SYMPTOM Plan: WITHDRAWAL SYMPTOM
[2016-06-30] MEDS: cloNIDine HCL 0.1 MG TABLET PO SCH (10:47)
[2016-06-30] MEDS: METHADONE HCL 5 MG TABLET (FOR DETOX USE ONLY) PO SCH (10:47)
[2016-06-30] MEDS: CYCLOBENZAPRINE HCL 10 MG TABLET (FP) PO PRN (10:47)
[2016-06-30] MEDS: NICOTINE 14 MG/24 HOURS TOPICAL PATCH TD SCH (10:47)
[2016-06-30] MEDS: PRENATAL VITAMINS W/ FOLIC ACID TABLET (FP) PO SCH (10:47)
--- NOTE | 2016-06-30 11:18 | PN ---
[facility] Progress Note Note: PATIENT IS THREATENING TO HURT STAFFS,SECURITY CALLED TO UNIT,ADMINISTRATIVE DISCHARGE,ESCORTED OFF UNIT BY SECURITY,COUNSELOR AWARE
--- NOTE | 2016-06-30 11:23 | DS ---
[facility] Detox Discharge Summary Admission Date: 06/27/16 Discharge Date: 06/30/16 - History Present History: Alcohol Dependence, Opioid Dependence Additional Comments: PATIENT IS THREATENING THE STAFFS,SECURITIES PRESENT ON UNIT,ADMINISTRATIVE DISCHARGE, ESCORTED OFF UNIT BY SECURITY Pertinent Past History: KIDNEY STONES HEPATITIS C NICOTINE DEPENDENCE - Physical Exam Results Vital Signs: Vital Signs Temperature 98.1 F 06/30/16 10:24 Pulse Rate 80 06/30/16 10:24 Respiratory Rate 16 06/30/16 10:24 Blood Pressure 114/79 06/30/16 10:24 O2 Sat by Pulse Oximetry (%) Pertinent Admission Physical Exam Findings: WITHDRAWAL SYMPTOM - Medication Discharge Medications: Ambulatory Orders NK [No Known Home Medication] 10/17/15 - AMA Did Patient Leave Against Medical Advice: No
[2016-06-30] MEDS ORDERED: chlordiazePOXIDE HCL 10 MG CAPSULE PO SCH (17:00)
[2016-06-30] MEDS ORDERED: hydrOXYzine PAMOATE 50 MG CAPSULE (FP) PO SCH (22:00)
[2016-07-01] MEDS ORDERED: METHADONE HCL 10 MG TABLET (FOR DETOX USE ONLY) PO SCH (10:00)
[2016-07-02] MEDS ORDERED: METHADONE HCL 5 MG TABLET (FOR DETOX USE ONLY) PO SCH (06:00)
== END 2016-06-30 11:20 | disposition home or self-care (01) | DRG 773 ==
LOC: YASAS 11:04 → Y6N 13:56
PROVIDERS: ADMIT Internal Medicine Addiction Medicine; ATTEND Internal Medicine Addiction Medicine
PROC: HZ2ZZZZ Detoxification Services for Substance Abuse Treatment (ICD-10-PCS; principal; 2016-06-30)
DX: F11.23 Opioid dependence with withdrawal (principal); F10.230 Alcohol dependence with withdrawal, uncomplicated; F14.20 Cocaine dependence, uncomplicated; F17.210 Nicotine dependence, cigarettes, uncomplicated; B18.2 Chronic viral hepatitis C; Z87.442 Personal history of urinary calculi; Z91.19 Patient's noncompliance with other medical treatment and regimen; F91.8 Other conduct disorders
CPT/HCPCS: 36415; 80048; 80053; 81003; 85027; 86593; 87389; 93005; 93010